=== PATIENT | female | born 2005 | race Asian ===

== ENCOUNTER 2025-03-03 20:58 | Emergency (ER) | payer OTHER, SELFPAY ==
--- NOTE | ~2025-03-03 | XR_ITS ---
CLINICAL HISTORY: pain 3 view left foot Comparison: None provided Findings: There is a transverse fracture through the proximal end of the 5th metatarsal extending into the articular surface. Fracture is minimally displaced. No significant loss of joint space, osteophytes, or erosions. No ankle effusion. No radiopaque foreign body. IMPRESSION: Minimally displaced transverse fracture of the proximal end of the 5th metatarsal. This document has been electronically signed by: Wai Suarez MD on 03/03/2025 22:20:16
--- NOTE | ~2025-03-03 | XR_ITS ---
CLINICAL HISTORY: pain 3 view left ankle Comparison: None provided Findings: No acute fractures or dislocations. No significant arthritic change or erosions. No ankle effusion. No radiopaque foreign body. IMPRESSION: 1. No acute findings. This document has been electronically signed by: Wai Suarez MD on 03/03/2025 22:21:07
[2025-03-03 21:15] VITALS: BP 108/65; PULSE 83; RESP 18; TEMP 36.4; O2SAT 100; BMI 21.1
--- NOTE | 2025-03-04 00:05 | ED.LOWEXIN ---
HPI - Extremity Injury (Lower) General Chief Complaint: Extremity Injury, Lower Stated Complaint: twisted left ankle hiking Time Seen by Provider: 03/04/25 00:02 History of Present Illness ED Provider: Shan Snyder MD HPI Narrative: 20-year-old female with a foot injury in the left foot hiking felt she twisted the ankle. She was hiking and felt inversion twisting type of injury with a pop sensation in the left lateral foot base no other injuries Related Data Allergies Allergy/AdvReac Type Severity Reaction Status Date / Time No Known Allergies Allergy Verified 03/03/25 21:16 [facility] Social History Social History Smoked in Last 30 Days: No Use of substances other than those prescribed or required for medical reasons: No Advance Directives: No Advance Directives Information Provided: No Do you have a plan to hurt others: No Plan Patient : No Physical Exam Exam: Exam: Left foot significant swelling of the lateral left base tenderness. Well-perfused. No ankle swelling and tenderness lower leg compartments soft no ecchymosis injury or bony tenderness Vital Signs: Vital Signs: Last Vital Signs Temp 98.0 F 03/04/25 00:53 Pulse 62 03/04/25 00:53 Resp 16 03/04/25 00:53 BP 101/52 L 03/04/25 00:53 Pulse Ox 100 03/04/25 00:53 O2 Del Method Room Air 03/04/25 00:53 BMI result Body Mass Index 21.1 Medications Administered Discontinued Medications Generic Name Dose Route Start Last Admin Trade Name Freq PRN Reason Stop Dose Admin Acetaminophen 975 mg 03/04/25 00:04 03/04/25 00:13 Acetaminophen 325 Mg Tablet PO 03/04/25 00:05 Not Given ONCE ONE Ibuprofen 800 mg 03/04/25 00:04 03/04/25 00:12 Ibuprofen 800 Mg Tablet PO 03/04/25 00:05 800 mg ONCE ONE Administration Medical Decision Making Medical Decision Making [facility] Narrative: [age] female with inversion injury and proximal metatarsal fracture most suggestive of possible Andrade fracture for this reason and given that the patient is young and athletic we will immobilized with a posterior splint and make her nonweightbearing with crutches until orthopedic follow up as established we explained this to her and her cousin who is a ed educational aide in [facility] where the patient is from. The patient is a student at [employer]. I counseled her on ice rest elevation nonweightbearing status until orthopedic follow up Independent Interpretation I performed an independent interpretation of an: Plain X-Ray Interpretation: Foot x-ray reviewed by myself suggest transverse fracture through the base of the 5th metatarsal left foot suggesting Andrade fracture Procedures Orthopedic Splinting/Casting Injury #1: Side: left Lower Extremity Injury Location: ankle Lower Extremity Immobilizer: posterior splint Other Orthopedic Equipment: crutches Discharge Plan Discharge Clinical Impression: Fracture of fifth metatarsal bone of left foot Patient Disposition: Home, Self-Care Instructions: Foot Fracture in Adults (ED) Additional Instructions: DISCHARGE DIAGNOSES: Left 5th metatarsal fracture possibly Andrade fracture type HISTORY OF PRESENTATION: ?Foot injury just prior to arrival no other injuries EMERGENCY DEPARTMENT COURSE,TESTS, TREATMENTS: While in the ED today foot x-ray shows base of the 5th metatarsal of the left foot with a fracture DISCHARGE MEDICATIONS: ?[We have made no changes to your regular medication regimen] FOLLOW-UP: ?Call your primary or general physician soon as possible to discuss your symptoms, your ED visit and to discuss follow up plans You are to be nonweightbearing that means to put no weight at all until approved or cleared by Orthopedics to do so on the left foot. Use the crutches as described. Call orthopedics either our orthopedic service here at [facility] or [facility] who have foot specialists as you requested and we discussed. Their phone number is [facility]: [phone] tell them you were has been diagnosed with a 5th metatarsal fracture or Andrade fracture of the left foot INSTRUCTIONS ?& RETURN PRECAUTIONS: If any symptoms change first call your primary physician, if it is after-hours your primary doctors office should have a provider transmission design engineer you can speak with. If the symptoms are severe or very concerning to you then call 911 or return to the ED. Rest ice elevation, ibuprofen Tylenol as needed for pain. We have provided you with a disc of your x-ray. Shan Snyder MD Emergency Physician [facility] Interventions: ED Discharge Assessment Last Done: 03/04/25 00:53 Discharge Date/Time: 03/04/25 00:55 Print Language: Estonian
[2025-03-04 00:13] VITALS: BP 101/52; PULSE 62; RESP 16; TEMP 36.7; O2SAT 100
[2025-03-04 00:53] VITALS: BP 101/52; PULSE 62; RESP 16; TEMP 36.7; O2SAT 100
== END 2025-03-04 00:55 | disposition home or self-care (01) ==
PROVIDERS: Emergency Provider Emergency Medicine
DX: S92.302A Fracture of unspecified metatarsal bone(s), left foot, initial encounter for closed fracture (principal); X50.1XXA Overexertion from prolonged static or awkward postures, initial encounter; Y93.01 Activity, walking, marching and hiking; Y92.9 Unspecified place or not applicable; Y99.9 Unspecified external cause status; M25.572 Pain in left ankle and joints of left foot
CPT/HCPCS: 29515; 73610; 73630; 99283; 99284

== ENCOUNTER → 2025-03-03 21:19 | Outpatient (BNV) | payer OTHER, SELFPAY | PROVIDERS: Visit Provider Radiology Diagnostic Radiology | DX: M25.572 Pain in left ankle and joints of left foot (principal); S92.351A Displaced fracture of fifth metatarsal bone, right foot, initial encounter for closed fracture; X50.9XXA Other and unspecified overexertion or strenuous movements or postures, initial encounter | CPT/HCPCS: 73610; 73630 ==